=== PATIENT | male | born 1960 | race Caucasian/White ===

== ENCOUNTER 2019-06-06 11:41 | Emergency (ER) | payer OTHER, SELFPAY ==
[2019-06-06] VITALS (32 sets, daily range): BP systolic 127–169; BP diastolic 61–135; PULSE 55–75; RESP 11–35; TEMP 36.8; O2SAT 93–100
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
[2019-06-06 12:26] LABS: Abs Immature Grans 0.01 k/cumm (0.0-0.09); Absolute Basophil Count 0.02 k/cumm (0.0-0.2); Absolute Eosinophil Count 0.12 k/cumm (0.0-0.7); Absolute Lymphocyte Count 1.29 k/cumm (1.2-3.4); Absolute Monocyte Count 0.64 k/cumm (0.11-0.7); Absolute Neutrophil Count 5.34 k/cumm (1.2-6.7); Basophils % 0.3; Eosinophils % 1.6; HCT 45.6 % (40.0-50.0); HGB 15.6 g/dL (13.5-17.5); Immature Grans % 0.1; Lymphocytes % 17.4; Mean Corp. HGB Concentration 34.2 g/dL (32.0-36.0); Mean Corpuscular Hemoglobin 32.2 pg (27.0-33.0); Mean Corpuscular Volume 94.2 fL (80-95); Mean Platelet Volume 9.9 fL (8.0-11.0); Monocytes % 8.6; Platelet Count 213 x1000/uL (130-400); RBC 4.84 m/cumm (4.50-6.00); RBC Distribution Width 12.5 % (11.8-14.1); White Blood Cell Count 7.42 k/cumm (4.4-10.8)
[2019-06-06] MEDS: Normal Saline 1,000 ML 1000 ML IV (12:30)
[2019-06-06] MEDS: Omnipaque 350 MG/ML 100 ML BTL IJ (12:34)
[2019-06-06] MEDS: Normal Saline Flush 10 ML SYR IVP (12:35)
--- NOTE | 2019-06-06 12:43 | DI.CT_ITS ---
EXAM: CT HEAD CERV SPINE FACIAL WO CLINICAL HISTORY: intraoral lac/anterior jaw/neck pain, r/o fracture. TECHNIQUE: Multiple contiguous axial images of the head, face, cervical spine were obtained. Reform atted images were performed. COMPARISON: There are no priors for comparison. FINDINGS: There is a normal carbajal-white matter differentiation. No intracranial hemorrhage is identified. There is no acute midline shift or mass effect. The ventricles are intact the basilar cisterns are patent . There is no evidence of a skull fracture. There is opacification of several ethmoid air cells and mucosal thickening in the sphenoid sinuses. The mastoid air cells are well pneumatized. There is a nondisplaced fracture of the spinous process of C4. The fracture does not extend into the lamina. No other fracture or subluxation is seen in the cervical spine. The odontoid is intact. T he lateral masses are well aligned. There is no prevertebral soft tissue swelling. There are fractures of the nasal bones. These appear old there is a concave deformity of the right l marya papyracea. This appears to be related to chronic fracture deformity. There does not appear to be an acute fracture or dislocation of the facial bones. There is opacification of several ethmoid air cells. There is mucosal thickening seen in the sphenoid sinuses bilaterally. There is also muco diaz thickening seen in the maxillary sinuses. The findings are most marked on the left. No fluid le vels are appreciated. The nasal septum mildly deviates to the left. There obstruction of the ostiom eatal complexes bilaterally. This is likely chronic. The orbits and retro-orbital soft tissues are unremarkable. IMPRESSION: No acute intracranial process. Nondisplaced fracture of the C4 spinous process No evidence of an acute facial fracture. Old nasal bone deformities are present. There also appears to be an old right lamina papyracea fracture. These findings were discussed with the emergency department on 06/07/2019.
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
[2019-06-06 12:49] LABS: ALT 31 U/L (16-63); AST 21 U/L (15-37); Albumin 4.1 g/dL (3.4-5.0); Alkaline Phosphatase 88 U/L (46-116); Anion Gap 8.5 mmol/L (3-11); BUN 22 mg/dL (7-18); Bilirubin, Total 0.5 mg/dL (0.2-1.0); CO2 28.5 mmol/L (21.0-32.0); CREATININE 1.34 mg/dL (0.70-1.30); Calcium 9.1 mg/dL (8.5-10.1); Chloride 104 mmol/L (98-107); Estimated GFR 55.14 (mL/min/1.73m2); Glucose 99 mg/dL (70-100); Magnesium 1.9 mg/dL (1.8-2.4); Potassium 4.3 mmol/L (3.5-5.1); Sodium 141 mmol/L (136-145); Total Protein 7.6 g/dL (6.4-8.2)
--- NOTE | 2019-06-06 12:52 | NUR.NOTE ---
pt back from ct on secured entrance monitor Nursing Note:
[2019-06-06 12:54] LABS: Troponin I < 0.05 ng/mL (0.00-0.06)
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
--- NOTE | 2019-06-06 14:00 | NUR.NOTE ---
lower portion of inner gum line cleaned thourghly for debri Nursing Note:
[2019-06-06] MEDS: Ketorolac 30 MG/ML VIAL (15:05)
--- NOTE | 2019-06-06 15:28 | NUR.NOTE ---
7 sutures placed by md Nursing Note:
[2019-06-06] MEDS: Amoxicillin 875/Clav. 125 TAB PO (15:42)
--- NOTE | 2019-06-06 15:42 | NUR.NOTE ---
pt medicated as per mdo Nursing Note:
--- NOTE | 2019-06-07 13:05 | ED.FU.B_ITS ---
Received call from radiology Dr. Mar who was over reading CT images that were performed yesterday. Dr. Mar notes nondisplaced C4 spinous process fracture that was not appreciated by radiology yesterday. No other injuries identified. I called and spoke with on-call orthopedics, Dr. Cooper, and discussed ED course and diagnostic imaging finding of C4 spinous process fracture. He recommends s oft collar as needed for comfort and follow-up with orthopedics in 1 to 2 weeks. I called and spoke with the patient. He notes that his neck is a little bit sore today. He is otherwise doing well with no concerning symptoms. I discussed new finding of C4 spinous process fracture with the patient. I discussed recommendation from orthopedics. Patient understands instructions to schedule follow-up with orthopedics. He is not from the area and plans to follow-up in [place]. I encouraged him to return or go to the nearest [facility] department immediately for any worsening or new concerning symptoms.
== END 2019-06-06 15:58 | disposition home or self-care (01) ==
PROVIDERS: Emergency Provider Physician Assistant
DX: S06.0X9A Concussion with loss of consciousness of unspecified duration, initial encounter (principal); S01.512A Laceration without foreign body of oral cavity, initial encounter; S00.83XA Contusion of other part of head, initial encounter; M54.2 Cervicalgia; V17.0XXA Pedal cycle driver injured in collision with fixed or stationary object in nontraffic accident, initial encounter
CPT/HCPCS: 12015; 36415; 74177; 80053; 86850; 86900; 86901; 93005; 96360; 99285; 70450; 70486; 71260; 72125; 83735; 84484; 85025; 93010; 99284; J1885; J3490